=== PATIENT | female | born 1965 | race Caucasian/White ===

== ENCOUNTER 2018-10-29 02:07 | Emergency (ER) | payer MEDICARE ==
[2018-10-29] MEDS ORDERED: DOXYCYCL HYC100 MG PO (02:25)
[2018-10-29] MEDS ORDERED: DULOXETINE HCL60 MG PO (02:28)
[2018-10-29] MEDS ORDERED: GABAPENTIN300 M2 PO (02:29)
[2018-10-29] MEDS ORDERED: RISPERIDONE2 MG PO (02:30)
[2018-10-29] MEDS ORDERED: LOSARTAN POT25 MG PO (02:30)
[2018-10-29] MEDS ORDERED: PRAVASTATIN SOD20 MG PO (02:31)
[2018-10-29 03:00] VITALS: BP 128/79
== END 2018-10-29 03:00 | disposition home or self-care (01) ==
LOC: ED 02:07
DX: S61.250A Open bite of right index finger without damage to nail, initial encounter (principal); S50.811A Abrasion of right forearm, initial encounter; W55.01XA Bitten by cat, initial encounter; W55.03XA Scratched by cat, initial encounter

== ENCOUNTER 2020-06-01 17:51 | Emergency (ER) | payer MEDICARE ==
[~2020-06-01] VITALS: Ht 165.1 cm; Wt 80.0 kg
[~2020-06-01 17:51] MED LIST: DOXYCYCL HYC100 MG PO; DULOXETINE HCL60 MG PO; GABAPENTIN300 M2 PO; LOSARTAN POT25 MG PO; PRAVASTATIN SOD20 MG PO; RISPERIDONE2 MG PO
[2020-06-01 22:28] VITALS: BP 152/77
== END 2020-06-01 22:27 ==
LOC: ED 17:51
PROC: 0SSBXZZ Reposition Left Hip Joint, External Approach (ICD-10-PCS; principal; 2020-06-01)
DX: T84.021A Dislocation of internal left hip prosthesis, initial encounter (principal); X50.0XXA Overexertion from strenuous movement or load, initial encounter; Z96.642 Presence of left artificial hip joint

== ENCOUNTER 2023-02-01 16:42 | Emergency (ER) | payer MEDICARE ==
[~2023-02-01] VITALS: Ht 165.1 cm; Wt 72.0 kg
[2023-02-01] VITALS (44 sets, daily range): BP systolic 135–221; BP diastolic 78–166
[2023-02-01] MEDS ORDERED: CYMBALTA30 MG PO (17:03)
[2023-02-01] MEDS ORDERED: CRESTOR40 MG PO (17:03)
[2023-02-01] MEDS ORDERED: VOLTAREN75 MG PO (17:04)
[2023-02-01] MEDS ORDERED: HYDROXYZ HCL25 MG PO (17:04)
[2023-02-01] MEDS ORDERED: ATIVAN0.5 MG PO (17:05)
[2023-02-02] VITALS (36 sets, daily range): BP systolic 128–193; BP diastolic 79–116
== END 2023-02-02 06:42 ==
LOC: ED 16:42
PROC: 0SWBXJZ Revision of Synthetic Substitute in Left Hip Joint, External Approach (ICD-10-PCS; principal; 2023-02-01)
DX: T84.021A Dislocation of internal left hip prosthesis, initial encounter (principal); Y83.1 Surgical operation with implant of artificial internal device as the cause of abnormal reaction of the patient, or of later complication, without mention of misadventure at the time of the procedure; Z96.642 Presence of left artificial hip joint; Z20.822 Contact with and (suspected) exposure to COVID-19